=== PATIENT | female | born 1950 | race Caucasian/White ===

== ENCOUNTER → 2020-11-26 14:00 | Outpatient (BNVA) | payer MEDICARE, MEDICAID, SELFPAY | PROVIDERS: Family Provider Internal Medicine; PCP Internal Medicine; Visit Provider Internal Medicine | DX: R53.83 Other fatigue (principal); E11.9 Type 2 diabetes mellitus without complications; Z79.899 Other long term (current) drug therapy | CPT/HCPCS: 80053; 83036; 83550; 84443; 85025 ==

== ENCOUNTER → 2020-12-18 14:18 | Outpatient (BNVA) | payer MEDICARE, MEDICAID, SELFPAY | PROVIDERS: Family Provider Internal Medicine; PCP Internal Medicine; Visit Provider Podiatrist Foot & Ankle Surgery | DX: M19.071 Primary osteoarthritis, right ankle and foot (principal); M79.671 Pain in right foot | CPT/HCPCS: 73630 ==

== ENCOUNTER 2021-01-17 19:13 | Emergency (ER) | payer MEDICARE, MEDICAID, SELFPAY ==
[2021-01-17 19:24] VITALS: BP 141/83; PULSE 84; RESP 18; TEMP 36.4; O2SAT 92; BMI 30.7
--- NOTE | 2021-01-17 19:36 | XRR_ITS ---
PROCEDURE INFORMATION: Exam: XR Left Hand Exam date and time: 01/17/2021 7:36 PM Age: 70 years old Clinical indication: Injury or trauma; Other: Cut left hand 2nd and 3rd digits with circular saw; Laceration TECHNIQUE: Imaging protocol: XR Left hand. Views: 3 or more views. COMPARISON: No relevant prior studies available. FINDINGS: There are comminuted fractures of the middle and distal phalanx of the 3rd finger. There is extensive soft tissue injuries involving the 2nd and 3rd fingers. No additional fractures are identified. There are degenerative changes of the DIP and PIP joints of the 2nd through 5th fingers. There are degenerative changes of the 5th MCP joint. XR/XR hand LT 2V [id number] IMPRESSION: 1. Comminuted fractures involving the middle and distal phalanges of the 3rd finger. There is intra-articular extension of the fracture. 2. Soft tissue injuries involving the 2nd and 3rd fingers.
--- NOTE | 2021-01-17 19:38 | ED_ITS ---
HPI - Extremity Problem General: Chief complaint: Extremity Injury, Upper Stated complaint: TRAUMA: CIRCULAR SAW//LUE - 2ND/3RD FINGER Time Seen by Provider: 01/17/21 19:32 History of Present Illness: HPI Narrative: This patient is a 70-year-old female that was working on a countertop. Using a circular saw. Cutting a board and went through her index and middle finger of her left hand that was underneath the board she was helping. Patient has significant lacerations these fingers. Bleeding is controlled at this time. Distal mobility is decreased in the middle finger concerning for possible tendon disruption. MD Complaint: extremity pain and joint pain Pain Consistency: constant Location: left Severity scale (1-10): 8 Radiation: none Relieving factors: nothing Exacerbating factors: nothing Associated symptoms: Deny chest pain, fever(s) or rash Review of Systems General: Reports: 10 or more systems reviewed and unremarkable except in HPI and below Const: Denies: fever(s), chills, body aches or fatigue Eyes: Denies: change in vision or blurry vision ENMT: Denies: throat pain, hoarseness or mouth pain Card: Denies: chest pain, palpitations, irregular heart rhythm, edema, swelling of feet/ankles or lightheadedness Resp: Denies: dyspnea, productive cough, non-productive cough, wheezing or pain on inspiration GI: Denies: abdominal pain, nausea or vomiting : Denies: flank pain, difficulty voiding, dysuria, urinary frequency, urinary urgency or urinary hesitancy Musc: Reports: extremity pain, joint pain and limited range of motion; Denies: neck pain, back pain, extremity swelling, joint swelling, joint redness or joint warmth Skin/Breast: Denies: rash, pruritus, erythema or skin tenderness Neuro: Denies: headache(s), numbness in extremities or weakness in extremities Psych: Denies: anxiety or depression PFSH ED PFSH: Medical History Chronic pain of right knee Chronic pain syndrome Diabetes mellitus Essential (primary) hypertension Fibromyalgia Family History Other Cancer Dementia Heart disease Social History Smoking and tobacco status: never smoked Alcohol intake: never Household members: family Marital status: Current occupational status: disabled Physical Exam Const: COMMON NORMALS: no acute distress, average body habitus, patient oriented x3, no limitations, healthy appearing, alert and well nourished HENMT: COMMON NORMALS: normocephalic, atraumatic, hearing grossly normal bilaterally, external ears normal, EAC's normal, TM's normal bilaterally, Normal external nose present, Normal nasal mucous membranes and turbinates present, moist oral mucous membranes, oropharynx normal, dentition normal and gingiva normal HEAD & SCALP: normocephalic and atraumatic NOSE: Normal external nose present and Normal nasal mucous membranes and turbinates present EXTERNAL EAR: Yes external ears normal EXTERNAL AUDITORY CANAL: EAC's normal TYMPANIC MEMBRANE: TM's normal bilaterally Neck/C-Spine: COMMON NORMALS: full ROM, no lymphadenopathy, supple, no meningeal signs, no JVD, Thyroid normal and No carotid bruits THYROID: Thyroid normal Chest: COMMONS NORMALS: normal inspection of the chest, normal palpation of entire chest wall, normal inspection of the breasts and normal palpation of the breasts Breast/axilla inspection: Yes normal inspection of the breasts BREAST/AXILLA PALPATION: Yes normal palpation of the breasts Resp: COMMON NORMALS: normal respiratory effort, No retractions, No use of accessory muscles, clear to auscultation bilaterally and percussion normal AUSCULTATION: clear to auscultation bilaterally PERCUSSION: percussion normal Cardio: COMMON NORMALS: no JVD, regular rate, regular rhythm, S1 normal heart sound present, S2 normal heart sound present, No gallops present (Cardio), No clicks present (Cardio), No murmurs present (Cardio), No rub (Cardio) and Peripheral pulses 2+ throughout RATE: regular rate RHYTHM: regular rhythm HEART SOUNDS: S1 normal heart sound present and S2 normal heart sound present PERIPHERAL PULSES: Peripheral pulses 2+ throughout GI: COMMON NORMALS: Normal to inspection, nondistended, normoactive bowel sounds present, Soft to palpation, non-tender, No hepatosplenomegaly present, no masses and no bruits PALPATION: Yes Soft to palpation and Yes No hepatosplenomegaly present Back/Pelvis: COMMON NORMALS: thoracic and lumbar spine normal to inspection, no thoracic nor lumbar tenderness, thoraco-lumbar ROM normal and straight leg raise negative bilaterally Extremity: COMMON NORMALS: normal to inspection, capillary refill normal, no joint enlargement, no clubbing, cyanosis or edema, no calf tenderness and no pedal edema NARRATIVE EXTREMITY EXAM: Patient has had lacerations to the palmar side of the distal left first and middle fingers of the left hand. Patient appears to have some tendon disruption of the distal left middle finger related to the laceration due to the patient unable to move the DIP joint. Bleeding is controlled Neuro: COMMON NORMALS: patient oriented x3 SENSORIUM/ORIENTATION: Yes alert MENINGEAL SIGNS: Yes no meningeal signs Procedures Laceration Laceration 1: Site: hand Side (If applicable): left Size (cm): 3 Description: irregular Depth: involves muscle layer and involves tendon Local Anesthetic: lidocaine 2% Amount of anesthesia used (mL): 10 Pre-repair: irrigated extensively Skin layer closed with: nylon Size (cm): 4-0 Number of sutures: 2 Technique: simple, interrupted and other (Significant laceration with not much viable tissue. 2 sutures placed just to anchor down some tissue to approximate edges.) Laceration 2: Site: hand (Index finger) Side (If applicable): left Size (cm): 3 Description: irregular Depth: involves muscle layer and involves tendon Local Anesthetic: lidocaine 2% Amount of anesthesia used (mL): 10 Size (cm): 4-0 Number of sutures: 1 Technique: simple, interrupted and other (Extensive laceration damage not very much nonviable tissue. Tendon was just to approximate some edges for healing purposes only.) Course Reevaluation(s): Reevaluation #1: Patient had significant tissue disruption related to circular saw. Both to the distal index finger and the middle finger. One suture was placed in the distal index finger distance approximately some edges but very disrupted tissue. Patient's similar situation to the distal left middle finger. With underlying fracture 2 sutures placed simple interrupted to help approximate the end of the finger. Patient will be given Neosporin and nonadherent gauze. Tube gauze and splinting as needed. Patient will follow up with Dr. Castaneda in 1 to 2 days. Patient states understanding Time: 21:25 Consultations: Consultation #1: I did discuss at length with Dr. Castaneda [facility]. We did review patient's x-rays of her hand and nature of her injury. She agrees with vancomycin soft suturing to help approximate the wounds. And splinting of the fractured finger. Patient be discharged home with pain medications and doxycycline. Patient will follow up with Dr. Castaneda in 2 to 3 days. Patient is to call in the morning for appointment time. Time: 20:20 Vital Signs: Vital signs: Vital Signs Temperature 97.6 F 01/17/21 19:24 Pulse Rate 81 01/17/21 20:00 Respiratory Rate 18 01/17/21 20:15 Blood Pressure 147/84 01/17/21 20:00 Pulse Oximetry 96 01/17/21 20:15 MDM - Extremity (Nontraumatic) MDM Narrative: Medical decision making narrative: This patient is a 70-year-old female that was working on a countertop. Using a circular saw. Cutting a board and went through her index and middle finger of her left hand that was underneath the board she was helping. Patient has significant lacerations these fingers. Bleeding is controlled at this time. Distal mobility is decreased in the middle finger concerning for possible tendon disruption. Patient had significant tissue disruption related to circular saw. Both to the distal index finger and the middle finger. One suture was placed in the distal index finger distance approximately some edges but very disrupted tissue. Patient's similar situation to the distal left middle finger. With underlying fracture 2 sutures placed simple interrupted to help approximate the end of the finger. Patient will be given Neosporin and nonadherent gauze. Tube gauze and splinting I did discuss at length with Dr. Castaneda orthopedics. We did review patient's x- rays of her hand and nature of her injury. She agrees with vancomycin soft suturing to help approximate the wounds. And splinting of the fractured finger. Patient be discharged home with pain medications and doxycycline. Patient will follow up with Dr. Castaneda in 2 to 3 days. Patient is to call in the morning for appointment time.as needed. Patient will follow up with Dr. Castaneda in 1 to 2 days. Patient states understanding Lab Data: Labs: Lab Results 01/17/21 01/17/21 Range/Units 20:42 20:42 WBC 11.6 H (4.0-10.0) 10^3/ uL RBC 4.54 (4.1-5.3) 10^6/u L Hgb 12.6 (11.5-15.3) g/dL Hct 39.2 (37.0-47.0) % MCV 86.3 (81-99) fL MCH 27.8 L (28.0-34.0) pg MCHC 32.1 (30.0-36.0) g/dL RDW 13.1 (12.1-15.1) % Plt Count 295 (130-400) 10^3/c mm MPV 11.3 H (7.4-10.4) fL Neut % (Auto) 70.5 % Lymph % (Auto) 18.5 % [place] % (Auto) 7.1 % Eos % (Auto) 2.2 % Baso % (Auto) 0.6 % Neut # (Auto) 8.14 H (1.8-7.7) 10^3/u L Lymph # (Auto) 2.1 (0.8-4.8) 10^3/u L [place] # (Auto) 0.8 (0.2-0.9) 10^3/u L Eos # (Auto) 0.3 (0.0-0.8) 10^3/u L Baso # (Auto) 0.1 (0.0-0.1) 10^3/u L Nucleated RBC % (a uto) 0 % Nucleated RBCs # 0.0 /100WBC Sodium 133 L (136-145) mmol/L Potassium 4.4 (3.5-5.1) mmol/L Chloride 97 L (98-107) mmol/L Carbon Dioxide 27 (22-29) mmol/L Anion Gap 13.4 (5-19) BUN 21 (8-23) mg/dL Creatinine 1.1 H (0.5-0.9) mg/dL GFR Calculation 49.2 L (90-130) mL/min Glucose 330 H (65-115) mg/dL Calculated Osmolal ity 292 (285-295) mOsm/k g Calcium 8.8 (8.5-10.5) mg/dL Total Bilirubin 0.2 (0.15-1.2) mg/dL AST 10 (0-32) U/L ALT 11 (0-33) U/L Alkaline Phosphata se 80 (35-105) IU/L Total Protein 6.2 L (6.6-8.7) g/dL Albumin 3.5 (3.5-5.2) g/dL Globulin 2.7 (1.3-4.6) g/dL Imaging Data^: Other Xray: Attestation: I personally reviewed and interpreted this imaging study as follows: Radiologist's impression: IMPRESSION: 1. Comminuted fractures involving the middle and distal phalanges of the 3rd finger. There is intra-articular extension of the fracture. 2. Soft tissue injuries involving the 2nd and 3rd fingers. Discharge Plan Discharge Patient Disposition: Home Clinical Impression: Open fracture of finger, Laceration of finger, Contact with powered saw as cause of accidental injury Condition: Stable Prescriptions: New doxycycline hyclate 100 mg capsule 100 mg PO BID 7 Days Qty: 14 RF: 0 hydrocodone-acetaminophen 5-325 mg tablet 1 tab PO Q6H PRN (Reason: pain) Qty: 7 RF: 0 No Action bupivacaine (PF) 0.25 % (2.5 mg/mL) solution 2.5 mg intra-articular ONCE Qty: 1 RF: 0 Hysingla ER 20 mg tablet,oral only,ext.rel.24 hr 20 mg PO DAILY 30 Days Qty: 30 RF: 0 alprazolam [Xanax] 0.25 mg tablet 0.25 mg PO BID PRN (Reason: anxiety) Qty: 30 RF: 0 (DME) blood-glucose meter Kit See Rx Instructions .ROUTE .MEDSUPPLY Qty: 1 RF: 0 duloxetine 60 mg capsule,delayed release(DR/EC) 60 mg PO DAILY MDD 1 90 Days Qty: 90 RF: 3 losartan-hydrochlorothiazide [Hyzaar] 100-12.5 mg tablet 1 tab PO DAILY Qty: 90 RF: 3 meloxicam 15 mg tablet 15 mg PO DAILY Qty: 90 RF: 3 metoprolol succinate 25 mg capsule,sprinkle,ER 24hr 25 mg PO DAILY Qty: 90 RF: 3 omeprazole 20 mg capsule,delayed release(DR/EC) 20 mg PO DAILY Qty: 90 RF: 3 duloxetine 30 mg capsule,delayed release(DR/EC) 30 mg PO DAILY Qty: 90 RF: 3 fluticasone propionate [Flonase Allergy Relief] 50 mcg/actuation spray,suspension 1 spray intranasal BID Qty: 9.9 RF: 0 Ventolin HFA See Rx Instructions .ROUTE .COMPLEX RF: 0 Discharge Orders: Discharge ED (Routine); Ordered 01/17/21 Ordered By: Lei Jones Referrals: Sheldon Jackson MD [Primary Care Provider] - Discharge Diet: Advance as tolerated Discharge Activity: Increase activity as tolerated Patient Instructions: Opioid Safety Activity Restrictions/Additional Instructions: Follow loss instructions as given in the emergency department. Call Dr. Castaneda's office in the morning first thing to schedule a follow-up appointment in the clinic for your injuries to your fingers. Take all medications as prescribed. Rest elevate and ice as needed. Coding Level of Care Code ED Haulage Boss for Aleksandr Fwd Exam Comprehensive
[2021-01-17 20:00] VITALS: BP 147/84; PULSE 81; RESP 18; O2SAT 96
[2021-01-17 20:15] VITALS: RESP 18; O2SAT 96
[2021-01-17] MEDS: fentaNYL 50 mcg/mL INJ 2mL IVP (20:15)
[2021-01-17] MEDS: ondansetron 2 mg/ML SDV 2 mL 4 MG IVP (20:15)
[2021-01-17] MEDS: vancomycin 1,000 MG in sodium chloride 0.9% 250 ML 250 MG IV (20:35)
[2021-01-17 20:47] LABS: Basophils # 0.1 10^3/uL (0.0-0.1); Basophils % 0.6 %; Eosinophils # 0.3 10^3/uL (0.0-0.8); Eosinophils % 2.2 %; Hematocrit 39.2 % (37.0-47.0); Hemoglobin 12.6 g/dL (11.5-15.3); Lymphocytes # 2.1 10^3/uL (0.8-4.8); Lymphocytes % 18.5 %; Mean Corpuscular HGB Conc 32.1 g/dL (30.0-36.0); Mean Corpuscular Hemoglobin 27.8 pg (28.0-34.0); Mean Corpuscular Volume 86.3 fL (81-99); Mean Platelet Volume 11.3 fL (7.4-10.4); Monocytes # 0.8 10^3/uL (0.2-0.9); Monocytes % 7.1 %; Neutrophils # 8.14 10^3/uL (1.8-7.7); Neutrophils % 70.5 %; Nucleated Red Blood Cells % 0 %; Platelet Count 295 10^3/cmm (130-400); Red Blood Count 4.54 10^6/uL (4.1-5.3); Red Cell Distribution Width 13.1 % (12.1-15.1); White Blood Count 11.6 10^3/uL (4.0-10.0)
[2021-01-17] MEDS: tetanus-dipt-pertussis 0.5 mL SDV IM (20:54)
--- NOTE | 2021-01-17 21:00 | PC.NURSE ---
soaked left hand in ns and betadine at this time
[2021-01-17 21:07] LABS: Alanine Aminotransferase 11 U/L (0-33); Albumin Level 3.5 g/dL (3.5-5.2); Alkaline Phosphatase 80 IU/L (35-105); Anion Gap 13.4 (5-19); Aspartate Amino Transferase 10 U/L (0-32); Blood Urea Nitrogen 21 mg/dL (8-23); Calcium 8.8 mg/dL (8.5-10.5); Carbon Dioxide 27 mmol/L (22-29); Chloride 97 mmol/L (98-107); Globulin 2.7 g/dL (1.3-4.6); Glomerular Filtration Rate 49.2 mL/min (90-130); Glucose 330 mg/dL (65-115); Osmolality Calculated 292 mOsm/kg (285-295); Potassium 4.4 mmol/L (3.5-5.1); Sodium 133 mmol/L (136-145); Total Bilirubin 0.2 mg/dL (0.15-1.2); Total Protein 6.2 g/dL (6.6-8.7)
[2021-01-17] MEDS: lidocaine 2% INJ 20 mL INJECTION (21:12)
--- NOTE | 2021-01-17 21:30 | PC.NURSE ---
after laceration repair I applied neosporin to both affected digits of left hand. I then applied non stick telfa and a folded 4x4 over the distal end. I then used tube guaze to create large bulky dressing and secured with coban used not with compression only to assist to adhere in place of both 2nd and 3rd digit of left hand.
[2021-01-17 21:57] VITALS: BP 145/85; PULSE 80; RESP 18; O2SAT 97
== END 2021-01-17 21:55 | disposition home or self-care (01) ==
PROVIDERS: Emergency Provider Emergency Medicine; PCP Internal Medicine
DX: S62.623B Displaced fracture of middle phalanx of left middle finger, initial encounter for open fracture (principal); S62.633B Displaced fracture of distal phalanx of left middle finger, initial encounter for open fracture; S61.211A Laceration without foreign body of left index finger without damage to nail, initial encounter; E11.9 Type 2 diabetes mellitus without complications; I10 Essential (primary) hypertension; W27.0XXA Contact with workbench tool, initial encounter; Z23 Encounter for immunization
CPT/HCPCS: 12002; 73120; 80053; 85025; 90471; 90715; 96365; 96375; 99284; J2405; J3010; J3370; J7050

== ENCOUNTER → 2021-01-23 09:33 | Outpatient (BNVA) | payer MEDICARE, MEDICAID, SELFPAY | PROVIDERS: PCP Internal Medicine; Referring Provider Emergency Medicine; Visit Provider Specialist | DX: S62.623A Displaced fracture of middle phalanx of left middle finger, initial encounter for closed fracture (principal); S62.633A Displaced fracture of distal phalanx of left middle finger, initial encounter for closed fracture; W31.2XXA Contact with powered woodworking and forming machines, initial encounter | CPT/HCPCS: 73140 ==

== ENCOUNTER 2021-11-25 06:17 | Day surgery (SDC) | payer MEDICARE, MEDICAID, SELFPAY ==
[2021-10-10 12:46] VITALS: BMI 30.7
--- NOTE | 2021-10-14 07:33 | W.PM.OPSFHP ---
Same Day Surgery H&P Indication for Procedure/HPI DATE OF PROCEDURE: October 14, 2021 CHIEF COMPLAINT/INDICATIONFOR SURGICAL PROCEDURE: Dysphagia PREOP DIAGNOSIS: Dysphagia PLANNED PROCEDURE: Operation Date: 10/14/21 08:45 Proposed Procedures p EGD [id number](Not Applicable) - Sheldon Jackson MD Medications/Allergies* Home Medications Medication Instructions Recorded Confirmed Type Ventolin HFA See Rx Instructions .ROUTE .COMPLEX 01/17/21 10/10/21 History duloxetine 30 mg capsule,delayed 30 mg PO DAILY 10/10/21 10/10/21 History release Allergies/Adverse Reactions Allergy/AdvReac Type Severity Reaction Status Date / Time Cephalosporins Allergy ALGY-Anaphy Verified 10/10/21 12:43 laxis morphine Allergy vomiting Verified 10/10/21 12:43 Pertinent History/Comorbid Conditions* Medical History (Updated 09/03/21 @ 15:44 by Sheldon Jackson MD) Chronic pain of right knee Chronic pain syndrome Diabetes mellitus Essential (primary) hypertension Fibromyalgia Family History (Updated 07/20/19 @ 09:26 by Alicia Layne LPN) Dementia Heart disease Cancer Social History Smoking and tobacco status: never smoked Alcohol intake: never Household members: family Marital status: Current occupational status: disabled Pertinent Exam Findings alert, oriented x 3, clear to auscultation bilaterally, regular rate & rhythm, operative site marked and procedure specific exam findings Recommendations Surgery/Procedure today Coding Level of Care Code Acute Rehabilitation Coordinator for Aleksandr De León
[2021-11-21 14:25] VITALS: BMI 32.7
[2021-11-25 06:36] VITALS: BP 145/110; PULSE 66; RESP 18; TEMP 36.9; O2SAT 98
[2021-11-25] MEDS: sodium chloride 0.9% 1,000 ML 30 ML IV (06:49)
--- NOTE | 2021-11-25 06:55 | ANES.PREANE2 ---
Documented by User: Perri Manzano CRNA 11/25/21 07:10 Pre-Anesthetic Assessment Height/Weight: Height 1.57 m Weight 81.193 kg Temp Pulse Resp BP Pulse Ox 98.4 F 66 18 145/110 98 11/25/21 06:36 11/25/21 06:36 11/25/21 06:36 11/25/21 06:36 11/25/21 06:36 Preop Diagnosis: Dysphagia Operation Date: 11/25/21 07:30 Proposed Procedures p EGD 94602(Not Applicable) - Sheldon Jackson MD Familial anesthetic complications: none Was Beta Yaakov taken within 24 hours: N/A Was Clonidine taken within 24 hours: N/A Last intake: Intake Last Liquid Date 11/24/21 Last Liquid Time 23:44 Last Solid Date 11/24/21 Last Solid Time 19:00 Social No alcohol and No tobacco smokes MJ occasionally Exam alert and oriented x 3 Airway Submandibular: within normal limits Cervical ROM: within normal limits Mallampati: Class II Dentition: full Pulmonary Asthma CV/HEM Hypertension None reported Hepatic None reported GI Gastroesophageal Reflux Disease Metabolic Hyperlipidemia [facility] Fibromyalgia Neuropsych None reported Anesthetic Plan ASA status: 3 Anesthesia: Anesthesia Evaluation and MAC Risk of > 500 ml blood loss (7ml/kg in children): No Medications/Allergies Home Medications Medication Instructions Recorded Confirmed Last Taken Type blood-glucose meter #1 each 02/07/20 11/14/21 Unknown Rx fluticasone propionate 50 1 spray INTRANASAL BID #9.9 ml 12/19/20 11/25/21 Unknown Rx mcg/actuation nasal spray,suspension (Flonase Allergy Relief) Ventolin HFA See Rx Instructions .ROUTE .COMPLEX 01/17/21 11/25/21 01/16/21 History duloxetine 60 mg capsule,delayed 60 mg PO DAILY 90 Days #90 cap MDD 05/23/21 11/25/21 11/24/21 Rx release 1 losartan 100 1 tab PO DAILY #90 tab 06/24/21 11/25/21 11/24/21 Rx mg-hydrochlorothiazide 12.5 mg tablet (Hyzaar) meloxicam 15 mg tablet 15 mg PO DAILY #90 tab 06/24/21 11/25/21 11/24/21 Rx metoprolol succinate 25 mg capsule 25 mg PO DAILY #90 each 08/13/21 11/25/2122 Rx sprinkle, ext. release 24 hr alprazolam 0.25 mg tablet (Xanax) 0.25 mg PO BID PRN #30 tab 08/15/21 11/25/21 11/24/21 Rx insulin glargine U-300 conc 300 45 unit (0.15 mL) SUBCUT DAILY #6 10/01/21 11/25/21 11/24/21 Rx unit/mL (3 mL) subcutaneous pen ml (Toujeo Max U-300 SoloStar) duloxetine 30 mg capsule,delayed 30 mg PO DAILY 10/10/21 11/25/21 11/24/21 History release hydrocodone bitartrate 30 mg 30 mg PO DAILY 30 Days #30 tab 11/07/21 11/25/21 11/24/21 Rx tablet,crush resist,extended rel. 24hr (Hysingla ER) coenzyme Q10 100 mg capsule (Co 100 mg PO DAILY 11/21/21 11/25/21 11/24/21 History Q-10) pantoprazole 40 mg tablet,delayed 40 mg PO DAILY #90 tab 11/25/21 Unknown Rx release Allergies Allergy/AdvReac Type Severity Reaction Status Date / Time Cephalosporins Allergy ALGY-Anaphy Verified 11/25/21 06:34 laxis morphine Allergy vomiting Verified 11/25/21 06:34 Current Medications Generic Name Dose Route Start Last Admin Trade Name Freq PRN Reason Stop Dose Admin Sodium Chloride 1,000 mls @ 30 mls/hr 11/25/21 06:30 11/25/21 06:49 Sodium Chloride 0.9% IV 30 mls/hr .Q24H OLEG Administration PFSH Anesthesia Medical History Chronic pain of right knee Chronic pain syndrome Diabetes mellitus Essential (primary) hypertension Fibromyalgia Family History Other Cancer Dementia Heart disease Social History Smoking and tobacco status: never smoked Alcohol intake: never Household members: family Marital status: Current occupational status: disabled Data Anesthesia Cardiac Studies: No Data to Display
--- NOTE | 2021-11-25 07:39 | P.HP_ITS ---
Same Day Surgery H&P Indication for Procedure/HPI DATE OF PROCEDURE: November 25, 2021 CHIEF COMPLAINT/INDICATIONFOR SURGICAL PROCEDURE: Dysphagia PREOP DIAGNOSIS: Dysphagia PLANNED PROCEDURE: Operation Date: 11/25/21 07:30 Proposed Procedures p EGD [id number](Not Applicable) - Sheldon Jackson MD Medications/Allergies* Home Medications Medication Instructions Recorded Confirmed Type Ventolin HFA See Rx Instructions .ROUTE .COMPLEX 01/17/21 11/25/21 History duloxetine 30 mg capsule,delayed 30 mg PO DAILY 10/10/21 11/25/21 History release coenzyme Q10 100 mg capsule (Co 100 mg PO DAILY 11/21/21 11/25/21 History Q-10) Allergies/Adverse Reactions Allergy/AdvReac Type Severity Reaction Status Date / Time Cephalosporins Allergy ALGY-Anaphy Verified 11/25/21 06:34 laxis morphine Allergy vomiting Verified 11/25/21 06:34 Current Medications: Generic Name Dose Route Start Last Admin Trade Name Freq PRN Reason Stop Dose Admin Sodium Chloride 1,000 mls @ 30 mls/hr 11/25/21 06:30 11/25/21 06:49 Sodium Chloride 0.9% IV 30 mls/hr .Q24H LOEG Administration Pertinent History/Comorbid Conditions* Medical History (Updated 09/03/21 @ 15:44 by Sheldon Jackson MD) Chronic pain of right knee Chronic pain syndrome Diabetes mellitus Essential (primary) hypertension Fibromyalgia Family History (Updated 07/20/19 @ 09:26 by Alicia Layne LPN) Dementia Heart disease Cancer Social History Smoking and tobacco status: never smoked Alcohol intake: never Household members: family Marital status: Current occupational status: disabled Pertinent Exam Findings alert, oriented x 3, clear to auscultation bilaterally, regular rate & rhythm, operative site marked and procedure specific exam findings Recommendations Surgery/Procedure today Coding Level of Care Code Acute Analytical Statistician for Aleksandr De León
[2021-11-25 07:47] VITALS: BP 125/87; PULSE 61; RESP 17; TEMP 36.1; O2SAT 94
--- NOTE | 2021-11-25 07:50 | ANE.PACU2 ---
Documented by User: Perri Manzano CRNA 11/25/21 07:50 Inpatient post-anesthesia follow up: Airway intact: Yes Vital signs: Temperature 98.4 F Pulse Rate 66 Respiratory Rate 18 Blood Pressure 145/110 Pulse Oximetry 98 Oxygen Delivery Me thod Room Air Oxygen Flow Rate Fraction of Inspir ed Oxygen Hydration adequate: Yes Nausea and vomiting: No Pain level: 1 Mental status: Baseline
[2021-11-25 07:58] VITALS: BP 113/76; PULSE 68; RESP 16; O2SAT 96
[2021-11-25 08:02] VITALS: BP 137/78; PULSE 62; RESP 16; O2SAT 97
[2021-11-26 05:40] LABS: H. Pylori / CLO Test Negative
== END 2021-11-25 08:20 | disposition home or self-care (01) ==
PROVIDERS: PCP Internal Medicine; Visit Provider Internal Medicine
PROC: 0DJ08ZZ Inspection of Upper Intestinal Tract, Via Natural or Artificial Opening Endoscopic (ICD-10-PCS; CPT 43235; principal; 2021-11-25 07:30)
DX: R13.10 Dysphagia, unspecified (principal); K44.9 Diaphragmatic hernia without obstruction or gangrene; K29.70 Gastritis, unspecified, without bleeding; E11.9 Type 2 diabetes mellitus without complications; I10 Essential (primary) hypertension; G89.29 Other chronic pain; M79.7 Fibromyalgia; K21.9 Gastro-esophageal reflux disease without esophagitis; E78.5 Hyperlipidemia, unspecified
CPT/HCPCS: 43239; 87077; J2704; J7030

== ENCOUNTER → 2022-06-05 17:01 | Outpatient (BNVA) | payer MEDICARE, MEDICAID, SELFPAY | PROVIDERS: PCP Family Medicine; Visit Provider Family Medicine | DX: I10 Essential (primary) hypertension (principal); E11.9 Type 2 diabetes mellitus without complications | CPT/HCPCS: 80053; 80061; 83036; 85025 ==

== ENCOUNTER → 2022-10-15 15:10 | Outpatient (BNVA) | payer MEDICARE, MEDICAID, SELFPAY | PROVIDERS: PCP Family Medicine; Visit Provider Family Medicine | DX: E11.9 Type 2 diabetes mellitus without complications (principal) | CPT/HCPCS: 80053; 83036 ==

== ENCOUNTER → 2023-02-12 14:49 | Outpatient (BNVA) | payer MEDICARE, MEDICAID, SELFPAY | PROVIDERS: PCP Family Medicine; Visit Provider Family Medicine | DX: R00.0 Tachycardia, unspecified; E11.9 Type 2 diabetes mellitus without complications; R53.1 Weakness | CPT/HCPCS: 80053; 83036; 85025; 85651; 86140; 86618; 86666; 86757 ==

== ENCOUNTER 2023-02-19 10:26 | Outpatient (CLI) | payer MEDICARE, MEDICAID, SELFPAY ==
--- NOTE | 2023-02-19 10:45 | FL_ITS ---
WS: [id number] Esophagram with Gastrografin, 02/19/2023 Clinical Data: Dysphagia Comparison: None. Fluoroscopy time: 1min [id number] # of spot films: 58 Findings: The patient swallowed the Gastrografin without hesitation. 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 No aspiration or penetration o ccurred. The Gastrografin enters the esophagus and there were numerous tertiary contractions. There was a larg e fixed hiatal hernia. There is narrowing of the gastroesophageal junction and there was moderate ref lux. The mucosal surface of the distal esophagus was irregular and there may be numerous small ulcera tions. The fundus of the stomach is within the lower chest but it shows no abnormalities. Impression: 1. Anterior osteophytes from C3 3 through C7 which impinge on the posterior surface of the hypopharyn x but did not obstruct. 2. Extensive tertiary contractions with irregularity of the distal mucosal surface of the esophagus w hich could indicate small ulcers. 3. Hiatal hernia with the fundus of the stomach situated in the chest. 4. Moderate gastroesophageal reflux.
== END 2023-02-19 10:27 | disposition home or self-care (01) ==
LOC: RAD 10:29
PROVIDERS: PCP Family Medicine; Visit Provider Family Medicine
DX: R13.10 Dysphagia, unspecified (principal)
CPT/HCPCS: 74220

== ENCOUNTER 2023-02-27 13:29 | Outpatient (CLI) | payer MEDICARE, MEDICAID, SELFPAY ==
--- NOTE | 2023-02-27 13:45 | USCV_ITS ---
Nydia Owens Age: 72 Gender: F : 1950 Exam Date: 02/27/2023 13:58 Ordering Phys: Jayce Keita MD Technologist: Exam Location: [facility] – [place] Indication: chest pain BP: 120 / 70 HR: 66 Rhythm: Sinus Technical Quality: Adequate MEASUREMENTS (Male / Female) Normal Values 2D ECHO LV Diastolic Diameter PLAX 3.3 cm 4.2 - 5.9 / 3.9 - 5.3 cm LV Systolic Diameter PLAX 1.9 cm IVS Diastolic Thickness 0.9 cm 0.6 - 1.0 / 0.6 - 0.9 cm IVS Systolic Thickness 1.3 cm LVPW Diastolic Thickness 1.1 cm 0.6 - 1.0 / 0.6 - 0.9 cm LVPW Systolic Thickness 1.5 cm LVOT Diameter 2.0 cm LV Ejection Fraction 2D Teich 74.1 % LV Ejection Fraction MOD 2C 69.3 % LV Ejection Fraction 2C AL 71.3 % LA Diameter 4.4 cm M-MODE Aortic Annulus Diameter 2.9 cm LA Ao Ratio MM 1.7 MV E Point Septal Separation 1.4 cm DOPPLER AV Peak Velocity 147.7 cm/s LVOT Peak Velocity 97.0 cm/s AV Area Cont Eq vti 1.9 cm squared AV Area Cont Eq pk 2.1 cm squared MV Area PHT 2.9 cm squared Mitral E to A Ratio 0.8 MV E' Velocity 41.5 cm/s Mitral E to MV E' Ratio 1.8 Mitral E to LV E' Lateral Ratio 8.4 Mitral E to LV E' Septal Ratio 1.0 TR Peak Velocity 141.8 cm/s TR Peak Gradient 8.0 mmHg Right Atrial Pressure 3.0 mmHg Pulmonary Artery Systolic Pressu 11.0 mmHg RV Acceleration Time 0.2 s FINDINGS Left Ventricle Normal left ventricular size and systolic function, EF 72 %. No regional wall motion abnormalities. Grade I/IV diastolic dysfunction (abnormal relaxation filling pattern), normal to mildly elevated filling pressures. Right Ventricle The right ventricle is normal in size and function. Right Atrium The right atrium is normal in size. Left Atrium The left atrium is normal in size. Mitral Valve No gross abnormalities noted Aortic Valve No gross abnormalities noted Tricuspid Valve No gross abnormalities noted Pulmonic Valve No gross abnormalities noted Pericardium Normal pericardium without effusion. Aorta Normal ascending aorta dimension. IVC Inferior vena cava not visualized well. CONCLUSIONS Normal left ventricular size and systolic function, EF 72 %. No regional wall motion abnormalities. Grade I/IV diastolic dysfunction (abnormal relaxation filling pattern), normal to mildly elevated filling pressures. Normal cardiac chamber sizes. No gross valvular abnormalities. There is no pericardial effusion. There are no intracardiac masses. Compared to the study from 10/24/2013, there may not be significant change. Dr Lisbeth Hutchinson MD FACC (Electronically Signed) Final Date: 27 February 2023 16:56 S
== END 2023-02-27 13:30 | disposition home or self-care (01) ==
PROVIDERS: PCP Family Medicine; Visit Provider Family Medicine
DX: R00.0 Tachycardia, unspecified (principal)
CPT/HCPCS: 93306

== ENCOUNTER 2023-09-16 06:00 | Outpatient (CLI) | payer MEDICARE, MEDICAID, SELFPAY | END 2023-09-16 06:01 | LOC: SPT 09-17 10:05 | PROVIDERS: PCP Family Medicine; Visit Provider Specialist | DX: Z46.89 Encounter for fitting and adjustment of other specified devices (principal); M25.561 Pain in right knee | CPT/HCPCS: 99204; L1812 ==

== ENCOUNTER → 2023-09-16 13:48 | Outpatient (BNVA) | payer MEDICARE, MEDICAID, SELFPAY | PROVIDERS: PCP Family Medicine; Visit Provider Specialist | DX: M17.11 Unilateral primary osteoarthritis, right knee; Z46.89 Encounter for fitting and adjustment of other specified devices; M25.561 Pain in right knee | CPT/HCPCS: 73560; 73565; 99204; L1812 ==

== ENCOUNTER → 2023-10-15 16:13 | Outpatient (BNVA) | payer MEDICARE, MEDICAID, SELFPAY | PROVIDERS: PCP Family Medicine; Visit Provider Family Medicine | DX: J45.909 Unspecified asthma, uncomplicated (principal); M79.7 Fibromyalgia; E11.9 Type 2 diabetes mellitus without complications | CPT/HCPCS: 80053; 83036 ==

== ENCOUNTER → 2024-08-08 13:30 | Outpatient (BNVA) | payer MEDICARE, SELFPAY | PROVIDERS: PCP Family Medicine; Visit Provider Family Medicine | DX: E11.9 Type 2 diabetes mellitus without complications (principal); I10 Essential (primary) hypertension | CPT/HCPCS: 80053; 80061; 83036; 85025 ==

== ENCOUNTER → 2025-03-24 10:52 | Outpatient (BNVA) | payer MEDICARE, MEDICAID, SELFPAY | PROVIDERS: PCP Family Medicine; Visit Provider Family Medicine | DX: E11.9 Type 2 diabetes mellitus without complications (principal) | CPT/HCPCS: 80053; 83036 ==